=== PATIENT | male | born 1950 | race Caucasian/White ===

== ENCOUNTER 2020-12-30 18:27 | Inpatient (IN) ==
[2020-12-30] MEDS ORDERED: ALBUTEROL HFA 8 GM INHALER INH ONE (21:12)
[2020-12-30] MEDS ORDERED: ACETAMINOPHEN 500 MG TAB PO STA (21:12)
[2020-12-30] MEDS ORDERED: SODIUM CHLORIDE 0.9% 1000ML 1,000 ML IV ONE (21:12)
--- NOTE | 2020-12-30 21:20 | Emergency Department Note ---
Impression & Plan Pneumonia, Acute hyponatremia, Elevated troponin, Flu-like symptoms ED Provider Note NAME: NEGRITO HAN AGE: 70 SEX: M : 1950 ARRIVES VIA: Walk-In INFORMANT: [Patient] ED PROVIDER(S): [Umberto Raya MD] CHIEF COMPLAINT: Fever HISTORY OF PRESENT ILLNESS: The patient is a 70-year-old male who presents with 1 week of flu symptoms. He has had a fever, fatigue, chills, body aching. He has been noticing a slight cough. The patient had a rapid Covid test yesterday that was negative, his though tested positive. The patient has been vaccinated against COVID-19. Today, the patient's fever spiked, his O2 saturation was in the upper 80s at home on his pulse ox monitor. He presents for evaluation. The patient has not had vomiting or diarrhea. He has a decreased appetite and feels a lot of lethargy. He states it is an effort just to walk around his house. He has no known lung disease. No known heart disease. He has been using [id number] meds for fever and pain control. REVIEW OF SYSTEMS: See HPI for pertinent positives and negatives. A total of ten systems were reviewed and were otherwise negative. PMHx/PSHx: See Below SOCIAL HISTORY: See Below. PHYSICAL EXAM: GENERAL: Patient is in no acute distress. HEENT: No acute trauma, normocephalic atraumatic, mucous membranes moist, no nasal congestion, no scleral icterus. NECK: No stridor, no adenopathy, no meningismus, trachea is midline. LUNGS: No wheezing, no respiratory distress. Crackles at the left base. HEART: Tachycardic, regular rhythm, no murmurs. ABDOMEN: Soft, nontender, bowel sounds positive, no hernias, no peritonitis. EXTREMITIES: No cyanosis or edema, full range of motion of all the joints without pain or difficulty, no signs for acute trauma. NEUROLOGIC: Oriented x 3, no acute motor or sensory deficits, no focal weakness. SKIN: No rash, no jaundice, no diaphoresis. DIFFERENTIAL DIAGNOSIS: Infection, dehydration, metabolic abnormality, hypo/hyperglycemia, COVID-19, pneumonia, sepsis, bacteremia, electrolyte disturbance, anemia, hypoxia, cardiac sources, as well as other pathologies. EMERGENCY DEPARTMENT COURSE/PROCEDURES: ECG: Indication was shortness of breath. The ECG shows a normal sinus rhythm with a rate of 97. There is some nonspecific ST change. There is no ST ovation, no PVCs. QTC is 454. Continuous Cardiac Monitoring: An order was placed for continuous cardiac monitoring. The monitor shows a rate of 112 with sinus tachycardia. MEDICAL DECISION MAKING: There is no leukocytosis or concerning anemia. There is a normal platelet count. Renal panel testing shows a low sodium at 127. No kidney failure. Lact ic acid level is not elevated making sepsis less likely. There were some subtle liver enzyme elevations. Covid testing returned negative. Chest film shows a left lower lung pneumonia. ECG shows a sinus rhythm with some nonspecific ST change, no acute ischemia. Cardiac enzyme testing x1 is slightly elevated, this elevation could be consistent with cardiac injury, mismatch or cardiac strain. The patient was given IV saline, 1 L. He was given IV doxycycline and IV ceftriaxone. He was given oral Tylenol and albuterol via MDI. The patient presents with flulike symptoms. He appears to have a pneumonia. He is hyponatremic and has an elevation to his troponin. Luckily, his Covid testing returned negative. Given his findings, a hospital stay is warranted. I spoke to the patient and welfare case worker. The on-call hospitalist was consulted. Past Med/Surg History Medical History Hypertension Social History Smoking Status: Never smoker Feels Safe at Home: Yes Allergies Allergies Allergy/AdvReac Type Severity Reaction Status Date / Time Penicillins Allergy Mild CHILDHOOD Unverified 12/30/20 22:36 Home Meds Home Medications Medication Instructions Recorded Confirmed atorvastatin 20 mg tablet 20 mg PO DAILY 12/30/20 12/30/20 valsartan 40 mg tablet 20 mg PO DAILY 12/30/20 12/30/20 Results & Data (ED) Vital Signs Vital Signs - 24 hr 12/30/20 19:02 12/30/20 21:40 12/30/20 22:18 Temperature 37.9 C H Temperature Source Oral Pulse Rate 112 H 97 H 98 H Pulse Rate from SpO2 Sensor 97 H Pulse Rhythm Regular Respiratory Rate 20 20 26 H Respiratory Effort / Characteristics Non-Labored Spontaneous Respiratory Depth Normal Respiratory Pattern Regular Blood Pressure 128/74 131/77 Blood Pressure Mean 92 95 Pulse Oximetry 93 93 95 Oxygen Delivery Method Room Air Room Air Sepsis Recent Fever Within 48 Hours No Sepsis New/Unexplained Change in Mental Status N/A Sepsis Action Taken by Nursing No Action Required 12/30/20 22:30 12/30/20 23:30 Temperature 37.5 C Temperature Source Oral Pulse Rate 94 H Pulse Rate from SpO2 Sensor 94 H Pulse Rhythm Respiratory Rate 28 H Respiratory Effort / Characteristics Respiratory Depth Respiratory Pattern Blood Pressure 140/70 Blood Pressure Mean 93 Pulse Oximetry 96 Oxygen Delivery Method Sepsis Recent Fever Within 48 Hours Sepsis New/Unexplained Change in Mental Status Sepsis Action Taken by Assisted Medications Current Medication List: was personally reviewed by me Laboratory Data Attestation: I reviewed the patient's lab results. Result diagrams: 12/30/20 22:06 12/30/20 22:06 Lab Results 12/30/20 12/30/20 12/30/20 Range/Units 22:06 22:06 22:06 WBC 9.97 (4.8-10.8) K/uL RBC 4.77 (4.7-6.1) M/uL Hgb 13.9 L (14.0-18.0) g/dL Hct 40.6 L (42-52) % MCV 85.1 (80-100) fL MCH 29.1 (25-34) pg MCHC 34.2 (32-36) g/dL RDW Std Deviation 39.3 (36.4-46.3) fL RDW Coeff of Elizabeth 12.7 (11.5-14.5) % Plt Count 214 (130-400) K/uL MPV 11.4 H (7.4-10.4) fL Immature Gran % (Auto) 0.2 % Neut % (Auto) 76.7 % Lymph % (Auto) 8.3 % [place] % (Auto) 14.6 % Eos % (Auto) 0.0 % Baso % (Auto) 0.2 % Neut # (Auto) 7.64 H (1.4-6.5) K/uL Lymph # (Auto) 0.83 L (1.2-3.4) K/uL [place] # (Auto) 1.46 H (0.11-0.59) K/uL Eos # (Auto) 0.00 (0-0.5) K/uL Baso # (Auto) 0.02 (0-0.2) K/uL Immature Gran # (Auto) 0.02 (0.00-0.02) K/uL Sodium 127 L (136-145) mmol/L Potassium 3.7 (3.5-5.1) mmol/L Chloride 94 L (98-107) mmol/L Carbon Dioxide 25 (21-32) mmol/L Anion Gap 9.0 (3-11) BUN 13 (7-18) mg/dl Creatinine 1.12 (0.6-1.4) mg/dl Est Cr Clr Drug Dosing 64.3 ml/min Est GFR ( Amer) 77.3 ml/min Est GFR (Non-Af Amer) 66.7 ml/min BUN/Creatinine Ratio 11.4 (10-20) Glucose 122 H (70-99) mg/dl Lactate 1.8 (0.4-2.0) mmol/L Calcium 8.4 L (8.5-10.1) mg/dl Magnesium 2.3 (1.8-2.4) mg/dl Total Bilirubin 1.0 (0.2-1) mg/dl AST 71 H (15-37) U/L ALT 97 H (12-78) U/L Alkaline Phosphatase 101 (45-117) U/L Troponin I 0.519 H* (0-0.045) ng/ml Total Protein 7.4 (6.4-8.2) gm/dl Albumin 3.1 L (3.4-5.0) gm/dl Globulin 4.3 H (2.5-4.0) gm/dl Albumin/Globulin Ratio 0.7 L (0.9-2) COVID-19 Eval Order SARS-CoV-2 (PCR) (Negative) 12/30/20 12/30/20 Range/Units 22:10 22:10 WBC (4.8-10.8) K/uL RBC (4.7-6.1) M/uL Hgb (14.0-18.0) g/dL Hct (42-52) % MCV (80-100) fL MCH (25-34) pg MCHC (32-36) g/dL RDW Std Deviation (36.4-46.3) fL RDW Coeff of Elizabeth (11.5-14.5) % Plt Count (130-400) K/uL MPV (7.4-10.4) fL Immature Gran % (Auto) % Neut % (Auto) % Lymph % (Auto) % [place] % (Auto) % Eos % (Auto) % Baso % (Auto) % Neut # (Auto) (1.4-6.5) K/uL Lymph # (Auto) (1.2-3.4) K/uL [place] # (Auto) (0.11-0.59) K/uL Eos # (Auto) (0-0.5) K/uL Baso # (Auto) (0-0.2) K/uL Immature Gran # (Auto) (0.00-0.02) K/uL Sodium (136-145) mmol/L Potassium (3.5-5.1) mmol/L Chloride (98-107) mmol/L Carbon Dioxide (21-32) mmol/L Anion Gap (3-11) BUN (7-18) mg/dl Creatinine (0.6-1.4) mg/dl Est Cr Clr Drug Dosing ml/min Est GFR ( Amer) ml/min Est GFR (Non-Af Amer) ml/min BUN/Creatinine Ratio (10-20) Glucose (70-99) mg/dl Lactate (0.4-2.0) mmol/L Calcium (8.5-10.1) mg/dl Magnesium (1.8-2.4) mg/dl Total Bilirubin (0.2-1) mg/dl AST (15-37) U/L ALT (12-78) U/L Alkaline Phosphatase (45-117) U/L Troponin I (0-0.045) ng/ml Total Protein (6.4-8.2) gm/dl Albumin (3.4-5.0) gm/dl Globulin (2.5-4.0) gm/dl Albumin/Globulin Ratio (0.9-2) COVID-19 Eval Order Covid19 at [facility] SARS-CoV-2 (PCR) NEGATIVE (Negative) Administered Medications Doxycycline Hyclate 100 mg/ (Dextrose) 110 mls @ 50 mls/hr IV NOW STA Stop: 12/31/20 01:27 Last Admin: 12/30/20 23:52 Dose: 50 mls/hr Documented by: [id number] Discontinued Medications Acetaminophen (Acetaminophen 500 Mg Tab) 1,000 mg PO NOW STA Stop: 12/30/20 21:13 Last Admin: 12/30/20 22:14 Dose: 1,000 mg Documented by: [id number] Albuterol (Albuterol Hfa 8 Gm Inhaler) 3 puffs INH NOW ONE Stop: 12/30/20 21:13 Last Admin: 12/30/20 22:14 Dose: 3 puffs Documented by: [id number] Sodium Chloride (Nss 1000ml) 1,000 mls @ 999 mls/hr IV .Q1H1M ONE Stop: 12/30/20 22:12 Last Admin: 12/30/20 22:14 Dose: 999 mls/hr Documented by: [id number] Ceftriaxone Sodium (Rocephin) 2,000 mg in 70 mls @ 140 mls/hr IV NOW STA Stop: 12/30/20 23:45 Last Admin: 12/30/20 23:29 Dose: 140 mls/hr Documented by: [id number] Imaging Data Attestation: I personally reviewed and interpreted this imaging study as follows: My Impression: Chest x-ray: Per my review there is a left lower lung infiltrate. There is no pneumothorax or CHF. Discharge Plan Visit Data Chief Complaint: Fever Stated Complaint: COVID+, 103.8 TEMP, 89 BLOOD OX ED Provider: Umberto Raya Discharge Problem: Pneumonia, Acute hyponatremia, Elevated troponin, Flu-like symptoms Patient Disposition: Admitted As Inpatient Condition: Fair Forms Stand Alone Forms: My [facility] Prescriptions Prescriptions: No Action atorvastatin 20 mg tablet 20 mg PO DAILY RF: 0 valsartan 40 mg tablet 20 mg PO DAILY RF: 0 Referrals Referrals: PCP,NO [Primary Care Provider] -
[2020-12-30 22:21] LABS: Basophils # (auto) 0.02 K/uL (0-0.2); Basophils % (auto) 0.2 %; Hematocrit (blood only) 40.6 % (42-52); Hemoglobin 13.9 g/dL (14.0-18.0); Immature Granulocytes # (auto) 0.02 K/uL (0.00-0.02); Immature Granulocytes % (auto) 0.2 %; Lymphocytes # (auto) 0.83 K/uL (1.2-3.4); Lymphocytes % (auto) 8.3 %; Mean Corpuscular Hemoglobin 29.1 pg (25-34); Mean Corpuscular Hgb Conc 34.2 g/dL (32-36); Mean Corpuscular Volume 85.1 fL (80-100); Mean Platelet Volume 11.4 fL (7.4-10.4); Monocytes # (auto) 1.46 K/uL (0.11-0.59); Monocytes % (auto) 14.6 %; Neutrophils # (auto) 7.64 K/uL (1.4-6.5); Neutrophils % (auto) 76.7 %; Platelet Count 214 K/uL (130-400); RDW Coefficient of Variation 12.7 % (11.5-14.5); RDW Standard Deviation 39.3 fL (36.4-46.3); Red Blood Count 4.77 M/uL (4.7-6.1); White Blood Count 9.97 K/uL (4.8-10.8)
[2020-12-30 22:40] LABS: Albumin Level 3.1 gm/dl (3.4-5.0); BUN Creatinine Ratio 11.4 (10-20); Calcium 8.4 mg/dl (8.5-10.1); Creatinine Clr Calc Pharmacy 64.3 ml/min; Est GFR (African American) 77.3 ml/min; Est GFR (Non-African American) 66.7 ml/min; Magnesium 2.3 mg/dl (1.8-2.4); Potassium 3.7 mmol/L (3.5-5.1)
[2020-12-30 22:47] LABS: Albumin Globulin Ratio 0.7 (0.9-2); Globulin 4.3 gm/dl (2.5-4.0); Total Protein 7.4 gm/dl (6.4-8.2); Troponin I 0.519 ng/ml (0-0.045)
[2020-12-30] MEDS ORDERED: DOXYCYCLINE HYCLATE 100 MG in DEXTROSE 5% 100 ML IV STA (23:16)
[2020-12-30] MEDS ORDERED: cefTRIAXone SODIUM 2,000 MG/70 ML BAG IV STA (23:16)
[2020-12-30] MEDS ORDERED: dexAMETHasone 6 MG in SYRINGE 0 ML IV ONE (23:55)
--- NOTE | 2020-12-31 00:14 | History & Physical Report ---
Date of Service December 31, 2020 Assessment & Plan (1) Sepsis: Plan: Community-acquired pneumonia (atypical infection given hyponatremia, abnormal LFTs) Rule out severe COVID-19 pneumonia (O2 sats below 94%, household exposure albeit possible false negative tests) Troponin elevation secondary to above Patient denies chest pain or S OB. hypertension, stable hyperlipidemia on statin Rx prediabetes, outpatient hemoglobin A1c of 5.7, November 2020 Medical telemetry CS, Doxycycline Decadron 1 dose now for presumptive severe COVID-19 pneumonia given O2 sats below 94% at the ER Covid 19 precautions for now until repeat swab done Careful correction of sodium, hyponatremia work-up Follow troponin, TTE if with progression Follow LFTs, liver ultrasound if with progression DVT prophylaxis. Lovenox subcu Full code Patient requests for his to be updated of plan of care. Ms. Cristina Olmstead, contact #[phone]. Text document was generated using Roamer voice recognition software. It may contain grammatical or spelling errors. Kindly contact undersigned for clarification of any documentation item in question. History of Present Illness Chief Complaint: Low O2 at home Primary Care Provider: Dr. Reid History obtained from patient and records. Medical history significant for hypertension, hyperlipidemia, IBS as per records, prediabetes. Last confinement 2010 for palpitations. Few days history of junky cough symptoms low-grade fever and increased fatigue, poor appetite. Patient denies chest pain, shortness of breath although O2 sats as low as 88% on home pulse ox. No abdominal pain complaints. No known recent Covid 19 contacts. Patient completed COVID-19 vaccination. Patient seen at local urgent care center 2 days ago. COVID-19 swab was negative. Patient's although asymptomatic had a positive COVID-19 test. Patient consulted ER for further evaluation. At the ER, patient received Ceftriaxone and Doxycycline for sepsis. Lowest O2 sats at the ER 93 on room air. 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 FAMILY HISTORY: DM, heart disease, stroke PERSONAL/SOCIAL HISTORY: Nonsmoker. No chronic intake of alcoholic beverages. 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 Allergies Allergy/AdvReac Type Severity Reaction Status Date / Time Penicillins Allergy Mild CHILDHOOD Unverified 12/30/20 22:36 Home Medications Medication Instructions Recorded Confirmed Type atorvastatin 20 mg tablet 20 mg PO DAILY 12/30/20 12/30/20 History valsartan 40 mg tablet 20 mg PO DAILY 12/30/20 12/30/20 History Past Med/Surg History Medical History Hypertension Social History Smoking Status: Never smoker Second Hand Exposure: No; Do You Dip or Chew Tobacco: No; Tobacco Cessation Education Requested by Patient: No Hx Alcohol Use: Yes Alcohol type: beer and wine Hx Substance Use: No Preferred Language: Slovak Project Director Required: No Beliefs That Will Affect Care: None Current Living Situation: Spouse Current Living Situation Comment: indep. with spouse at home. Other Information That Helps Us Care for You: No Feels Safe at Home: Yes Safety Concerns: Feels Safe At This Time Assistive Devices: Glasses Assistive Devices Comment: glasses at home. Review of Systems Review of Systems: As per HPI, all 10 systems reviewed, all other ROS negative Physical Exam Physical Exam: GENERAL: Comfortable, pleasant, no respiratory distress SKIN: Normal color, warm HEENT: Partial alopecia, Aldie palpebral conjunctivae, no ptosis, dry buccal mucosa NECK : Supple, no tenderness CHEST : CTA, no tenderness HEART : RRR, no obvious murmurs ABDOMEN: Some distention, nontender EXTREMITIES : No LE swelling/tenderness, no other conspicuous deformities noted NEUROLOGIC : Coherent, no facial asymmetry, no other gross focality Results & Data Results & Data ([facility]) Vital Signs (Past 12 Hours) Vital Signs Temp Pulse Resp BP Pulse Ox 12/30/20 23:30 37.5 C 12/30/20 22:30 94 H 28 H 140/70 96 12/30/20 22:18 98 H 26 H 131/77 95 12/30/20 21:40 97 H 20 93 12/30/20 19:02 37.9 C H 112 H 20 128/74 93 Laboratory Results Laboratory Results WBC 9.97 K/uL (4.8-10.8) 12/30/20 22:06 RBC 4.77 M/uL (4.7-6.1) 12/30/20 22:06 Hgb 13.9 g/dL (14.0-18.0) L 12/30/20 22:06 Hct 40.6 % (42-52) L 12/30/20 22:06 MCV 85.1 fL (80-100) 12/30/20 22:06 MCH 29.1 pg (25-34) 12/30/20 22:06 MCHC 34.2 g/dL (32-36) 12/30/20 22:06 RDW Std Deviation 39.3 fL (36.4-46.3) 12/30/20 22:06 RDW Coeff of Elizabeth 12.7 % (11.5-14.5) 12/30/20 22:06 Plt Count 214 K/uL (130-400) 12/30/20 22:06 MPV 11.4 fL (7.4-10.4) H 12/30/20 22:06 Immature Gran % (Auto) 0.2 % 12/30/20 22:06 Neut % (Auto) 76.7 % 12/30/20 22:06 Lymph % (Auto) 8.3 % 12/30/20 22:06 [place] % (Auto) 14.6 % 12/30/20 22:06 Eos % (Auto) 0.0 % 12/30/20 22:06 Baso % (Auto) 0.2 % 12/30/20 22:06 Neut # (Auto) 7.64 K/uL (1.4-6.5) H 12/30/20 22:06 Lymph # (Auto) 0.83 K/uL (1.2-3.4) L 12/30/20 22:06 [place] # (Auto) 1.46 K/uL (0.11-0.59) H 12/30/20 22:06 Eos # (Auto) 0.00 K/uL (0-0.5) 12/30/20 22:06 Baso # (Auto) 0.02 K/uL (0-0.2) 12/30/20 22:06 Immature Gran # (Auto) 0.02 K/uL (0.00-0.02) 12/30/20 22:06 Sodium 127 mmol/L (136-145) L 12/30/20 22:06 Potassium 3.7 mmol/L (3.5-5.1) 12/30/20 22:06 Chloride 94 mmol/L (98-107) L 12/30/20 22:06 Carbon Dioxide 25 mmol/L (21-32) 12/30/20 22:06 Anion Gap 9.0 (3-11) 12/30/20 22:06 BUN 13 mg/dl (7-18) 12/30/20 22:06 Creatinine 1.12 mg/dl (0.6-1.4) 12/30/20 22:06 Est Cr Clr Drug Dosing 64.3 ml/min 12/30/20 22:06 Est GFR ( Amer) 77.3 ml/min 12/30/20 22:06 Est GFR (Non-Af Amer) 66.7 ml/min 12/30/20 22:06 BUN/Creatinine Ratio 11.4 (10-20) 12/30/20 22:06 Glucose 122 mg/dl (70-99) H 12/30/20 22:06 Lactate 1.8 mmol/L (0.4-2.0) 12/30/20 22:06 Calcium 8.4 mg/dl (8.5-10.1) L 12/30/20 22:06 Magnesium 2.3 mg/dl (1.8-2.4) 12/30/20 22:06 Total Bilirubin 1.0 mg/dl (0.2-1) 12/30/20 22:06 AST 71 U/L (15-37) H 12/30/20 22:06 ALT 97 U/L (12-78) H 12/30/20 22:06 Alkaline Phosphatase 101 U/L (45-117) 12/30/20 22:06 Troponin I 0.519 ng/ml (0-0.045) H* 12/30/20 22:06 Total Protein 7.4 gm/dl (6.4-8.2) 12/30/20 22:06 Albumin 3.1 gm/dl (3.4-5.0) L 12/30/20 22:06 Globulin 4.3 gm/dl (2.5-4.0) H 12/30/20 22:06 Albumin/Globulin Ratio 0.7 (0.9-2) L 12/30/20 22:06 COVID-19 Eval Order Covid19 at [facility] 12/30/20 22:10 SARS-CoV-2 (PCR) NEGATIVE (Negative) 12/30/20 22:10 Diagnostic Findings Chest x-ray as per my interpretation infiltrate left EKG as per my interpretation : Rate 95, NSR, normal axis, diffuse T wave flattening
[2020-12-31] MEDS ORDERED: DEXAMETHASONE SOD INJ 4 MG/ML VIAL ONE (00:17)
[2020-12-31] MEDS ORDERED: VALSARTAN 80 MG TAB PO STA (00:39)
[2020-12-31] MEDS: ATORVASTATIN 20 MG TAB PO STA ×2 (01:27→01:28)
[2020-12-31 02:38] LABS: Thyroid Stimulating Hormone 1.26 uIu/ml (0.300-4.500)
[2020-12-31] MEDS ORDERED: ACETAMINOPHEN 325 MG TAB PO PRN ×2 (03:06→03:19)
[2020-12-31] MEDS ORDERED: PROMETHAZINE HCL 12.5 MG in SODIUM CHLORIDE 0.9% 50 ML IV PRN (03:06)
[2020-12-31 05:00] LABS: Basophils # (auto) 0.01 K/uL (0-0.2); Basophils % (auto) 0.1 %; Hematocrit (blood only) 38.3 % (42-52); Hemoglobin 13.3 g/dL (14.0-18.0); Immature Granulocytes # (auto) 0.02 K/uL (0.00-0.02); Immature Granulocytes % (auto) 0.2 %; Lymphocytes # (auto) 0.36 K/uL (1.2-3.4); Lymphocytes % (auto) 3.9 %; Mean Corpuscular Hemoglobin 29.6 pg (25-34); Mean Corpuscular Hgb Conc 34.7 g/dL (32-36); Mean Corpuscular Volume 85.1 fL (80-100); Mean Platelet Volume 12.1 fL (7.4-10.4); Monocytes # (auto) 0.58 K/uL (0.11-0.59); Monocytes % (auto) 6.2 %; Neutrophils # (auto) 8.32 K/uL (1.4-6.5); Neutrophils % (auto) 89.6 %; Platelet Count 203 K/uL (130-400); RDW Coefficient of Variation 12.6 % (11.5-14.5); RDW Standard Deviation 39.3 fL (36.4-46.3); White Blood Count 9.29 K/uL (4.8-10.8)
[2020-12-31 05:09] LABS: Partial Thromboplastin Ratio 1.2; Partial Thromboplastin Time 30.6 Seconds (21.0-31.0)
[2020-12-31 05:21] LABS: Albumin Level 2.7 gm/dl (3.4-5.0); BUN Creatinine Ratio 13.8 (10-20); Calcium 7.9 mg/dl (8.5-10.1); Creatinine Clr Calc Pharmacy 24.6 ml/min; Est GFR (African American) 83.5 ml/min; Est GFR (Non-African American) 72.1 ml/min; Potassium 3.4 mmol/L (3.5-5.1)
[2020-12-31] MEDS ORDERED: POTASSIUM CHLORIDE CRTAB 20 MEQ TABCR PO STA (05:23)
[2020-12-31 05:32] LABS: Albumin Globulin Ratio 0.7 (0.9-2); Bilirubin,Total 0.6 mg/dl (0.2-1); Globulin 3.9 gm/dl (2.5-4.0); Total Protein 6.6 gm/dl (6.4-8.2); Troponin I 0.566 ng/ml (0-0.045)
[2020-12-31 07:48] LABS: Appearance Urine Clear (Clear); Bilirubin Urine Negative (Negative); Blood Urine Negative (Negative); Color Urine Yellow; Glucose Urine UA 2+ (Negative); Ketones Urine Negative (Negative); Leukocyte Esterase Urine Negative (Negative); Nitrite Urine Negative (Negative); Protein Urine Negative (Negative); Specific Gravity Urine 1.006 (1.000-1.030); Urobilinogen Urine Negative (Negative); pH Urine 6.5 (4.5-7.5)
[2020-12-31] MEDS: LEVALBUTEROL TARTRATE 15 GM HFA.AER.AD INH SCH ×4 (07:53→20:07)
[2020-12-31] MEDS: DOXYCYCLINE HYCLATE 100 MG CAP PO SCH ×2 (08:21→21:44)
--- NOTE | 2020-12-31 08:53 | XRay Report ---
XR chest 1V portable HISTORY: weakness COMPARISON: Chest 06/01/2010. FINDINGS: Patchy airspace opacities within the left lower lung zone consistent with a pneumonia. The right lung is clear. The heart is normal in size. No pleural effusions. No pneumothorax. IMPRESSION: Patchy airspace opacities within the left lower lung zone consistent with a pneumonia. Recommend foll ow-up to ensure resolution. ACT 112: Negative or not required by law. Electronically signed by: Jose L Delgado M.D. 12/31/2020 8:52 AM
[2020-12-31 11:02] LABS: Troponin I 0.25 ng/ml (0-0.045)
--- NOTE | 2020-12-31 12:19 | Electrocardiogram Report ---
Test Reason : Blood Pressure : / mmHG Vent. Rate : 097 BPM Atrial Rate : 097 BPM P-R Int : 136 ms QRS Dur : 080 ms QT Int : 358 ms P-R-T Axes : 051 032 064 degrees QTc Int : 454 ms Normal sinus rhythm Nonspecific T wave abnormality When compared with ECG of 02-JUN-2010 07:01, Vent. rate has increased BY 36 BPM Nonspecific T wave abnormality, improved in Lateral leads Confirmed by Dashawn Levin ([id number]) on 12/31/2020 12:19:01 PM Referred By: REFERRED SELF Confirmed By:Dashawn Levin
[2020-12-31] MEDS ORDERED: GLUCAGON FOR INJ 1 MG VIAL SQ PRN (15:23)
[2020-12-31] MEDS ORDERED: CARBOHYDRATES FOR HYPOGLYCEMIA PO PRN (15:23)
[2020-12-31] MEDS ORDERED: GLUCOSE 40% GEL 15 GM TUBE PO PRN (15:23)
[2020-12-31] MEDS ORDERED: DEXTROSE 50% 50 ML SYRINGE IV PRN (15:23)
[2020-12-31] MEDS ORDERED: GLUCOSE 10 TABS/TUBE PO PRN (15:23)
--- NOTE | 2020-12-31 15:25 | Hospitalist Progress Note ---
Date of Service December 31, 2020 Assessment & Plan (1) Sepsis: Plan: 70-year-old man with IBS, prediabetes, HLD and HTN came in 12/30 to our ED with complaint of flulike symptoms associated with high temperature and hypoxia [as shown in home pulse ox]. He is currently being managed for the following: #. Sepsisresolved #. Pneumonialikely Legionella #. Hyponatremia -127 at presentation, up trended to 134 #. Transaminitisslowly downtrending Patient reports of SaO2 down to 88% on room air at home and temperature up to 103F at home. 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 His outpatient and inpatient Covid test has been negative. He and his recently stayed in hotel for 7 days within this month. also having similar signs and symptoms per patient but not as severe. tested positive for Covid antigen but her PCR came back negative. Both and have been vaccinated against Covid. At presentation, patient met the criteria for sepsis with high temperature, tachypnea and tachycardia CXR positive for lower left lobe infiltration combined with hyponatremia and transaminitis> highly suspicious for Legionella pneumonia on the background of recent hotel stay. Sepsis resolved, patient getting doxycycline for atypical pneumonia. Await urinary Legionella antigen testing, if negative send out culture or PCR whichever is available in our lab. If positive, inform infection control in the hospital and would recommend his be checked as well.. If positive, patient does not need airborne or contact isolation as [id number] transmission is very very rare. When positive, switch antibiotic to azithromycin. Hyponatremia and transaminitis expected to improve, continue to monitor. #. Prediabetes November 2020 A1c: 5.7 We will put him on sliding scalelow-dose #. Elevated troponin Troponin elevated at 0.5 at presentation, down trended 2.2 EKGNSR Patient denies chest pain Likely secondary to respiratory distress Full code Discussed plan of care with patient and his over the phone in detail. They seemed understanding and agreeable. Disposition: Expected discharge in 1 or 2 days to home unless new issue arises. Admission and Anticipated Discharge Date Admission Date: December 31, 2020 Subjective Patient was sitting up in bed, NAD, on room air. Patient reports feeling markedly better. Denies any shortness of breath/fever/chills/any other review of symptoms. Patient eating okay. Physical Exam Physical Exam: GENERAL: Alert and oriented x3. NAD, on RA. HEENT: No pallor, no icterus. Pupils equal, round and reactive to light. Oral mucosa moist. NECK: No JVD, no neck masses. HEART: S1 and S2 heard. Regular rate and rhythm. No murmur, no gallop. RESPIRATORY SYSTEM: Normal AP diameter. No accessory muscle use. No wheezing, crackles noted over left lower lobe. ABDOMEN: Soft, bowel sounds present, nontender, no distention. CENTRAL NERVOUS SYSTEM: Alert and oriented x3. No facial droop. Speech is clear. Obeys simple commands. Moves extremities. EXTREMITIES: No edema, no erythema seen. Results & Data Results & Data ([facility]) Vital Signs (Past 12 Hours) Vital Signs Temp Pulse Pulse Resp BP Pulse Ox 12/31/20 12:00 36.7 C 85 18 129/75 96 12/31/20 11:19 84 16 93 12/31/20 10:35 76 12/31/20 08:25 96 12/31/20 08:23 36.9 C 88 16 120/72 94 12/31/20 07:52 76 16 93
[2020-12-31 15:38] LABS: C Reactive Protein 15.8 mg/dl (0-0.29)
[2020-12-31] MEDS: INSULIN ASPART 100 UNITS/ML 3 ML PEN SC SCH ×2 (17:19→22:39)
[2020-12-31] MEDS ORDERED: POTASSIUM CHLORIDE 40 MEQ in SODIUM CHLORIDE 0.9% 1000ML 1,000 ML IV ONE (20:00)
[2020-12-31] MEDS: ATORVASTATIN 20 MG TAB PO SCH (21:43)
[2020-12-31] MEDS: VALSARTAN 80 MG TAB PO SCH (21:44)
[2021-01-01] MEDS: DOXYCYCLINE HYCLATE 100 MG CAP PO SCH ×2 (07:50→20:34)
[2021-01-01] MEDS: LEVALBUTEROL TARTRATE 15 GM HFA.AER.AD INH SCH (08:03)
[2021-01-01] MEDS: INSULIN ASPART 100 UNITS/ML 3 ML PEN SC SCH ×4 (08:39→20:33)
[2021-01-01] MEDS ORDERED: LEVALBUTEROL TARTRATE 15 GM HFA.AER.AD INH PRN (08:42)
[2021-01-01 09:25] LABS: Hematocrit (blood only) 40.4 % (42-52); Hemoglobin 13.5 g/dL (14.0-18.0); Mean Corpuscular Hgb Conc 33.4 g/dL (32-36); Mean Corpuscular Volume 86.7 fL (80-100); Mean Platelet Volume 11.5 fL (7.4-10.4); Platelet Count 285 K/uL (130-400); RDW Coefficient of Variation 13.2 % (11.5-14.5); Red Blood Count 4.66 M/uL (4.7-6.1); White Blood Count 8.61 K/uL (4.8-10.8)
[2021-01-01 09:48] LABS: Albumin Level 2.6 gm/dl (3.4-5.0); BUN Creatinine Ratio 15.7 (10-20); Calcium 8.2 mg/dl (8.5-10.1); Creatinine Clr Calc Pharmacy 72.7 ml/min; Est GFR (African American) 89.7 ml/min; Est GFR (Non-African American) 77.4 ml/min; Magnesium 2.3 mg/dl (1.8-2.4); Potassium 3.9 mmol/L (3.5-5.1)
[2021-01-01 09:50] LABS: Albumin Globulin Ratio 0.7 (0.9-2); Bilirubin,Total 0.6 mg/dl (0.2-1); Globulin 3.9 gm/dl (2.5-4.0); Phosphorus 2.2 mg/dl (2.5-4.9); Total Protein 6.5 gm/dl (6.4-8.2)
--- NOTE | 2021-01-01 16:33 | Hospitalist Progress Note ---
Date of Service January 01, 2021 Assessment & Plan (1) Sepsis: Plan: 70-year-old man with IBS, prediabetes, HLD and HTN came in 12/30 to our ED with complaint of flulike symptoms associated with high temperature and hypoxia [as shown in home pulse ox]. He is currently being managed for the following: #. Sepsisresolved #. Pneumonialikely Legionella #. Hyponatremia -127 at presentation, up trended to normal #. Transaminitisslowly downtrending Patient reports of SaO2 down to 88% on room air at home and temperature up to 103F at home. 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 His outpatient and inpatient Covid test has been negative. He and his recently stayed in hotel for 7 days within this month. also having similar signs and symptoms per patient but not as severe. tested positive for Covid antigen but her PCR came back negative. Both and have been vaccinated against Covid. At presentation, patient met the criteria for sepsis with high temperature, tachypnea and tachycardia CXR positive for lower left lobe infiltration combined with hyponatremia and transaminitis> highly suspicious for Legionella pneumonia on the background of recent hotel stay. Sepsis resolved, patient getting doxycycline for atypical pneumonia. Await urinary Legionella antigen testing, if negative send out culture or PCR whichever is available in our lab. If positive, inform infection control in the hospital and would recommend his be checked as well.. If positive, patient does not need airborne or contact isolation as [id number] transmission is very very rare. When positive, switch antibio tic to azithromycin. Hyponatremia and transaminitis expected to improve, continue to monitor. #. Prediabetes November 2020 A1c: 5.7 We will put him on sliding scalelow-dose #. Elevated troponin Troponin elevated at 0.5 at presentation, down trended 2.2 EKGNSR Patient denies chest pain Likely secondary to respiratory distress Full code Discussed plan of care with patient and his over the phone in detail. They seemed understanding and agreeable. Disposition: Expected discharge in 1 day to home unless new issue arises. Admission and Anticipated Discharge Date Admission Date: December 31, 2020 Subjective Patient was sitting up in bed, NAD, on room air. Patient reports feeling same as yesterday. Denies any shortness of breath/fever/chills/any other review of symptoms. Patient eating okay. Physical Exam Physical Exam: GENERAL: Alert and oriented x3. NAD, on RA. HEENT: No pallor, no icterus. Pupils equal, round and reactive to light. Oral mucosa moist. NECK: No JVD, no neck masses. HEART: S1 and S2 heard. Regular rate and rhythm. No murmur, no gallop. RESPIRATORY SYSTEM: Normal AP diameter. No accessory muscle use. No wheezing, significant crackles over left lower lobe. ABDOMEN: Soft, bowel sounds present, nontender, no distention. CENTRAL NERVOUS SYSTEM: Alert and oriented x3. No facial droop. Speech is clear. Obeys simple commands. Moves extremities. EXTREMITIES: No edema, no erythema seen. Results & Data Results & Data ([facility]) Vital Signs (Past 12 Hours) Vital Signs Temp Pulse Pulse Resp BP Pulse Ox 01/01/21 16:00 81 01/01/21 11:00 37.0 C 84 18 138/76 97 01/01/21 09:56 73 01/01/21 08:03 80 16 95 01/01/21 08:00 36.8 C 76 18 125/75 94
[2021-01-01] MEDS: VALSARTAN 80 MG TAB PO SCH (20:34)
[2021-01-01] MEDS: ATORVASTATIN 20 MG TAB PO SCH (20:35)
[2021-01-02 08:34] LABS: Albumin Level 2.5 gm/dl (3.4-5.0); BUN Creatinine Ratio 15.6 (10-20); Calcium 8.4 mg/dl (8.5-10.1); Creatinine Clr Calc Pharmacy 84.7 ml/min; Est GFR (Non-African American) 88.9 ml/min; Potassium 4.1 mmol/L (3.5-5.1)
[2021-01-02 08:37] LABS: Albumin Globulin Ratio 0.7 (0.9-2); Bilirubin,Total 0.6 mg/dl (0.2-1); Globulin 3.6 gm/dl (2.5-4.0); Total Protein 6.1 gm/dl (6.4-8.2)
[2021-01-02] MEDS: DOXYCYCLINE HYCLATE 100 MG CAP PO SCH (09:01)
[2021-01-02] MEDS: INSULIN ASPART 100 UNITS/ML 3 ML PEN SC SCH ×2 (09:21→12:51)
--- NOTE | 2021-01-02 10:02 | XRay Report ---
XR chest 1V portable HISTORY: f/u cxr, pneumonia, spiking fever again COMPARISON: Chest 12/30/2020. FINDINGS: No pneumothorax. No pleural effusions. The heart is top normal in size the right lung is cl ear. Slight progression of the patchy left lower lobe airspace opacities. IMPRESSION: Slight progression of the patchy left lower lobe airspace opacities consistent with a pneumonia. ACT 112: Negative or not required by law. Electronically signed by: Jose L Delgado M.D. 01/02/2021 10:00 AM
[2021-01-02 10:28] LABS: Hematocrit (blood only) 39.5 % (42-52); Hemoglobin 13.2 g/dL (14.0-18.0); Mean Corpuscular Hgb Conc 33.4 g/dL (32-36); Mean Corpuscular Volume 86.8 fL (80-100); Platelet Count 312 K/uL (130-400); RDW Coefficient of Variation 13.3 % (11.5-14.5); RDW Standard Deviation 42.2 fL (36.4-46.3); Red Blood Count 4.55 M/uL (4.7-6.1); White Blood Count 7.59 K/uL (4.8-10.8)
[2021-01-02] MEDS ORDERED: cefTRIAXone SODIUM 350 MG/ML IM IM ONE (11:31)
[2021-01-02 11:42] LABS: Appearance Urine Clear (Clear); Bilirubin Urine Negative (Negative); Blood Urine Negative (Negative); Color Urine Yellow; Glucose Urine UA Negative (Negative); Ketones Urine Negative (Negative); Leukocyte Esterase Urine Negative (Negative); Nitrite Urine Negative (Negative); Protein Urine Negative (Negative); Specific Gravity Urine 1.005 (1.000-1.030); Urobilinogen Urine Negative (Negative)
[2021-01-02] MEDS ORDERED: AZITHROMYCIN 500 MG in DEXTROSE 5% 250 ML IV ONE (11:45)
[2021-01-02] MEDS ORDERED: cefTRIAXone SODIUM 2,000 MG in DEXTROSE 5% 50 ML IV STA (11:59)
[2021-01-02] MEDS ORDERED: cefTRIAXone SODIUM 1,000 MG in DEXTROSE 5% 50 ML IV SCH (12:00)
[2021-01-02] MEDS ORDERED: AZITHROMYCIN 500 MG in DEXTROSE 5% 250 ML IV SCH (13:00)
--- NOTE | 2021-01-02 19:38 | Discharge Summary ---
Date of Service January 02, 2021 Admission HPI Per Admitting Provider History obtained from patient and records. Medical history significant for hypertension, hyperlipidemia, IBS as per records, prediabetes. Last confinement 2010 for palpitations. Few days history of junky cough symptoms low-grade fever and increased fatigue, poor appetite. Patient denies chest pain, shortness of breath although O2 sats as low as 88% on home pulse ox. No abdominal pain complaints. No known recent Covid 19 contacts. Patient completed COVID-19 vaccination. Patient seen at local urgent care center 2 days ago. COVID-19 swab was negative. Patient's although asymptomatic had a positive COVID-19 test. Patient consulted ER for further evaluation. At the ER, patient received Ceftriaxone and Doxycycline for sepsis. Lowest O2 sats at the ER 93 on room air. 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 FAMILY HISTORY: DM, heart disease, stroke PERSONAL/SOCIAL HISTORY: Nonsmoker. No chronic intake of alcoholic beverages. 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 Admission Exam Per Admitting Provider GENERAL: Comfortable, pleasant, no respiratory distress SKIN: Normal color, warm HEENT: Partial alopecia, [place] palpebral conjunctivae, no ptosis, dry buccal mucosa NECK : Supple, no tenderness CHEST : CTA, no tenderness HEART : RRR, no obvious murmurs ABDOMEN: Some distention, nontender EXTREMITIES : No LE swelling/tenderness, no other conspicuous deformities noted NEUROLOGIC : Coherent, no facial asymmetry, no other gross focality Principal Diagnosis Pneumonia Discharge Exam GENERAL: Alert and oriented x3. NAD, on RA. HEENT: No pallor, no icterus. Pupils equal, round and reactive to light. Oral mucosa moist. NECK: No JVD, no neck masses. HEART: S1 and S2 heard. Regular rate and rhythm. No murmur, no gallop. RESPIRATORY SYSTEM: Normal AP diameter. No accessory muscle use. No wheezing, left lower lobe crackles. ABDOMEN: Soft, bowel sounds present, nontender, no distention. CENTRAL NERVOUS SYSTEM: Alert and oriented x3. No facial droop. Speech is clear. Obeys simple commands. Moves extremities. EXTREMITIES: No edema, no erythema seen. Congenital amputation of bilateral fingers Discharge Data Allergies Allergy/AdvReac Type Severity Reaction Status Date / Time Penicillins Allergy Mild CHILDHOOD Unverified 12/30/20 22:36 Consultations 12/30/20 23:23 ED Decision to Admit Stat Hospital Course (1) Sepsis: 70-year-old man with IBS, prediabetes, HLD and HTN came in 12/30 to our ED with complaint of flulike symptoms associated with high temperature and hypoxia [as shown in home pulse ox]. He is currently being managed for the following: #. Sepsisresolved #. Pneumonialikely Legionella #. Hyponatremia -127 at presentation, up trended to normal #. Transaminitisslowly downtrending Patient reports of SaO2 down to 88% on room air at home and temperature up to 103F at home. 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 His outpatient and inpatient Covid test has been negative. He and his recently stayed in hotel for 7 days within this month. also having similar signs and symptoms per patient but not as severe. tested positive for Covid antigen but her PCR came back negative. Both and have been vaccinated against Covid. At presentation, patient met the criteria for sepsis with high temperature, tachypnea and tachycardia CXR positive for lower left lobe infiltration combined with hyponatremia and transaminitis> highly suspicious for Legionella pneumonia on the background of recent hotel stay. Sepsis resolved, patient getting doxycycline for atypical pneumonia --> spike temperature after discontinuing Rocephin for 1 day, hence put on a standard antibiotic therapy for pneumonia. Await urinary Legionella antigen testingstill pending at the time of discharge. Patient discharged with cefixime and azithromycin. Hyponatremia and transaminitis expected to improve, continue to monitor. #. Prediabetes November 2020 A1c: 5.7 Patient aware, continue to monitor as an outpatient. Patient aware #. Elevated troponin Troponin elevated at 0.5 at presentation, down trended 2.2 EKGNSR Patient denies chest pain Likely secondary to respiratory distress Patient discharged to home with antibiotic for pneumonia. Following instructions were communicated to the patient: Complete antibiotics as instructed. If your symptoms are worsening/develop any new skin rash or any worsening of symptoms, contact PCP or come to ER. Take medications as prescribed Follow-up with your PCP within a week time. Get CBC and CMP done within a week time and have your PCP see the results. Total Time Total Time Spent Total Time Spent (In Minutes): 45 Discharge Plan Discharge Items Patient Disposition: Home - Self-Care Reason For Visit: SEPSIS, POSS COVID Discharge Diagnosis: Pneumonia Hyponatremia Transaminitis Condition on Discharge: Fair Activity: Resume your previous activity Non-emergency contact: Primary Care Provider Call non-emergency contact if: you have any medication questions, your symptoms worsen and your temperature is above 101 Follow-up/Referrals: Damian Reid MD [Physician] - (Date & Time 01/09/2021 11:00 AM Provider aDmian eRid MD Department General Internal Medicine [facility] ) Diet: Heart Healthy Addtl Attending Provider Instructions: Complete antibiotics as instructed. If your symptoms are worsening/develop any new skin rash or any worsening of symptoms, contact PCP or come to ER. Take medications as prescribed Follow-up with your PCP within a week time. Get CBC and CMP done within a week time and have your PCP see the results. Pending Studies at Discharge: Yes Studies:: Urinary Legionella antigen pending Blood culture final result pending Stand-Alone Forms: My [facility] [place], Smoking Cessation Medications and DC Order Prescriptions: New azithromycin 250 mg tablet 250 mg PO DAILY 4 Days Qty: 4 RF: 0 cefixime 400 mg capsule 400 mg PO DAILY 6 Days Qty: 6 RF: 0 Continued atorvastatin 20 mg tablet 20 mg PO DAILY RF: 0 valsartan 40 mg tablet 20 mg PO DAILY RF: 0 Discharge Orders: Discharge Order (Routine); Ordered 01/02/21 Ordered By: Viviana Giang/Other Patient Handouts: When You Have Pneumonia Admission Data Admit Date/Time: 12/31/20 00:18 Attending Provider: Viviana Aaron Admit Provider: Marcell White Primary Care Provider: PCP,NO Other Providers: Marcell White Other Interventions: Discharge Summary Assessment (RN) Last Done: 01/02/21 16:15
[2021-01-03] MEDS ORDERED: cefTRIAXone SODIUM 2,000 MG in DEXTROSE 5% 50 ML IV SCH (12:00)
== END 2021-01-02 17:33 | disposition home or self-care (01) | DRG 871 ==
LOC: ED 18:27 → 2W 12-31 00:18